=== PATIENT | female | born 1975 | race Caucasian/White ===

== ENCOUNTER → 2016-10-28 | Outpatient (CLI) | payer BC ==
[2016-10-28 09:49] LABS: Basophils # (A) 0.1 k/uL (0-0.2); Basophils % (A) 1 %; CH 31.6; CHCM 33.1; Eosinophils # (A) 0.1 k/uL (0-0.7); Eosinophils % (A) 3 %; HCT 39.5 % (34.0-46.0); HDW 2.47; HGB 13.1 gm/dL (11.4-16.0); Luc # (Auto) 0.17; Luc % (Auto) 3; Lymphocytes # (A) 1.8 k/uL (1.0-4.8); Lymphocytes % (A) 35 %; MCH 31.7 pg (25.0-35.0); MCV 95.9 fL (80.0-100.0); Mean Platelet Volume 8.6; Monocytes # (A) 0.3 k/uL (0-1.0); Monocytes % (A) 6 %; Neutrophils # (A) 2.6 k/uL (1.3-7.7); Neutrophils % (A) 52 %; RBC 4.12 m/uL (3.80-5.40); RDW 12.6 % (11.5-15.5); WBC 5.1 k/uL (3.8-10.6); WBC (Perox) 5.29
[2016-10-28 10:15] LABS: ALT 24 U/L (9-52); AST 15 U/L (14-36); Alkaline Phosphatase 39 U/L (38-126); Anion Gap 8 mmol/L; Blood Urea Nitrogen 12 mg/dL (7-17); Calcium 9.4 mg/dL (8.4-10.2); Carbon Dioxide 27 mmol/L (22-30); Chloride 106 mmol/L (98-107); Cholesterol 178 mg/dL (<200); Glucose 88 mg/dL (74-99); HDL Cholesterol 58 mg/dL (40-60); Iron 59 ug/dL (37-170); Non-African American GFR(MDRD) >60 (>60 ml/min/1.73 sqM); Potassium 4.4 mmol/L (3.5-5.1); Sodium 141 mmol/L (137-145); Total Bilirubin 0.4 mg/dL (0.2-1.3); Total Protein 6.6 g/dL (6.3-8.2); Triglycerides 42 mg/dL (<150)
[2016-10-28 10:25] LABS: % Iron Saturation 19.8 % (20-50); Total Iron Binding Capacity 298 ug/dL (265-497)
[2016-10-28 10:38] LABS: Prolactin 23.5 ng/mL (3.0-18.6)
[2016-10-28 11:09] LABS: Vitamin B12 481 pg/mL (239-931)
== END | disposition home or self-care (01) ==
LOC: LABWHC1 08:35
PROVIDERS: ATTEND Internal Medicine Endocrinology, Diabetes & Metabolism
DX: R53.83 Other fatigue (principal); E03.8 Other specified hypothyroidism; E61.1 Iron deficiency; I10 Essential (primary) hypertension; E78.2 Mixed hyperlipidemia; D50.0 Iron deficiency anemia secondary to blood loss (chronic)
CPT/HCPCS: 36415; 80053; 80061; 82306; 82533; 82607; 82728; 83540; 83550; 84146; 84439; 84443; 84481; 85025

== ENCOUNTER → 2017-01-09 | Outpatient (CLI) | payer BC ==
--- NOTE | 2017-01-09 12:40 | EST ---
DATE OF SERVICE: 01/09/2017 AGE: 41Y SEX: F HT: 69" WT: 159 lbs. Protocol Nadir: X Other: Stress Stage: 3 Dur. of Exercise: 6:40 *Heart Rate Blood Pressure *Rest: 122 Rest: 124/69 * *Max. Achieved: 190 Maximum BP: 174/109 85% PMHR: 153 100% PMHR: 180 *METS: 8.1 INDICATIONS: Chest pain. MEDICATIONS: Xanax, Tylenol, Motrin. STRESS DATA: Pretesting physical examination showed a heart of 122, pressure is 124/69 mmHg. Baseline EKG showed sinus rhythm with sinus tachycardia. The patient exercised on the treadmill according to Nadir protocol for a total 6 minutes and achieved 8 of METs. His max heart rate was 190. Maximum blood pressure was 174/109 mmHg. Clinically, the patient did not have any symptoms of chest pain or discomfort during the testing or in the recovery time. The EKG did not show any significant ST or T-wave abnormalities consistent with ischemia. CONCLUSION: 1. Average exercise capacity. 2. Mild EKG changes in response to exercise. Did not meet the criteria for ischemia.
== END | disposition home or self-care (01) ==
LOC: RADNMMAIN 10:49
PROVIDERS: ATTEND Internal Medicine
DX: R07.9 Chest pain, unspecified (principal); I10 Essential (primary) hypertension
CPT/HCPCS: 93017

== ENCOUNTER → 2017-01-16 | Outpatient (CLI) | payer BC ==
--- NOTE | 2017-01-16 11:59 | US ---
EXAMINATION TYPE: US abdomen complete DATE OF EXAM: 01/16/2017 COMPARISON: NONE CLINICAL HISTORY: R10.11Right upper quadrant Abd Pain. Epigastric pain EXAM MEASUREMENTS: Liver Length: 12.4 cm Gallbladder Wall: 0.3 cm CBD: 0.3 cm Spleen: 9.8 cm Right Kidney: 10.4 x 4.9 x 4.1 cm Left Kidney: 10.0 x 5.7 x 5.2 cm Pancreas: Liver: wnl Gallbladder: no evidence of stones Evidence for sonographic Gonzalez's sign: No CBD: wnl Spleen: wnl Right Kidney: no evidence of hydronephrosis or mass Left Kidney: no evidence of hydronephrosis or mass Upper IVC: wnl Abd Aorta: wnl The liver is homogenous. The intrahepatic portion of the IVC and visualized abdominal aorta are with in normal limits. There is no evidence of cholelithiasis. Common bile duct is unremarkable. The vi sualized portions of the pancreas are slightly heterogeneous. No worrisome distinct focal mass causin g ductal dilatation is evident technologist put an arrow near Slightly heterogeneous ill-defined area suspect is not true lesion. The spleen is unremarkable. Kidneys are symmetric and free of hydroneph rosis. No renal lesions are seen. IMPRESSION: No significant finding is seen to account for patient's symptoms.
== END | disposition home or self-care (01) ==
LOC: RADUSWWP 10:36
PROVIDERS: ATTEND Internal Medicine
DX: R10.11 Right upper quadrant pain (principal)
CPT/HCPCS: 76700

== ENCOUNTER → 2017-01-21 | Outpatient (CLI) | payer BC ==
[2017-01-21 15:53] LABS: Appearance,Urine Clear (Clear); Bilirubin,Urine Negative (Negative); Glucose,Urine (UA) Negative (Negative); Ketones,Urine Negative (Negative); Leukocyte Esterase,Urine Negative (Negative); Nitrite,Urine Negative (Negative); Protein,Urine Negative (Negative); Specific Gravity,Urine 1.001 (1.001-1.035); UA Billing (MACRO vs. MICRO) CHEM; Urobilinogen,Urine <2.0 mg/dL (<2.0)
== END ==
LOC: LABWHC1 15:24
PROVIDERS: ATTEND Internal Medicine
DX: N39.0 Urinary tract infection, site not specified (principal)
CPT/HCPCS: 81003; 87086

== ENCOUNTER → 2017-02-13 | Outpatient (CLI) | payer BC ==
[2017-02-13 09:34] LABS: CH 30.7; HCT 40.3 % (34.0-46.0); HDW 2.49; HGB 13.9 gm/dL (11.4-16.0); MCH 32.1 pg (25.0-35.0); MCHC 34.4 g/dL (31.0-37.0); MCV 93.4 fL (80.0-100.0); Mean Platelet Volume 7.5; RBC 4.31 m/uL (3.80-5.40); RDW 12.6 % (11.5-15.5); WBC 6.2 k/uL (3.8-10.6)
[2017-02-13 10:41] LABS: % Iron Saturation 36.3 % (20-50)
--- NOTE | 2017-02-14 08:22 | MM ---
Reason for exam: history of breast augmentation, asymptomatic. Last mammogram was performed 2 years and 2 months ago. History: Retro-pectoral saline implants, September 2011. Physical Findings: A clinical breast exam by your physician is recommended on an annual basis and results should be correlated with mammographic findings. MG 3D Screen Mammo Imp/Cad Bilateral CC, MLO, and ID view(s) were taken. Prior study comparison: December 07, 2014, bilateral MG screening mammo w CAD. There are scattered fibroglandular densities. Bilateral implants. No significant changes when compared with prior studies. ASSESSMENT: Benign, BI-RAD 2 RECOMMENDATION: Routine screening mammogram of both breasts in 1 year.
== END | disposition home or self-care (01) ==
LOC: RADMAMWWP 08:46
PROVIDERS: ATTEND Obstetrics & Gynecology
DX: Z12.31 Encounter for screening mammogram for malignant neoplasm of breast (principal); E61.1 Iron deficiency; R53.83 Other fatigue; Z98.82 Breast implant status
CPT/HCPCS: 82728; 83540; 83550; 84443; 85027; 77063; G0202

== ENCOUNTER → 2017-04-03 | Outpatient (CLI) | payer BC | END | disposition home or self-care (01) | LOC: LABWHC1 11:08 | PROVIDERS: ATTEND Internal Medicine Endocrinology, Diabetes & Metabolism | DX: E03.8 Other specified hypothyroidism (principal) | CPT/HCPCS: 36415; 84443 ==

== ENCOUNTER → 2017-05-09 | Outpatient (CLI) | payer BC ==
--- NOTE | 2017-05-09 19:07 | ECHOF ---
Referral Reason:R01.1 Benign and innocent cardiac murmurs MEASUREMENTS -------- HEIGHT: 175.3 cm WEIGHT: 68.0 kg BP: 154/97 RVIDd: 2.4 cm (< 3.3) IVSd: 1.0 cm (0.6 - 1.1) LVIDd: 4.1 cm (3.9 - 5.3) LVPWd: 1.0 cm (0.6 - 1.1) IVSs: 1.3 cm LVIDs: 2.6 cm LVPWs: 1.6 cm LAESV Index (A-L): 19.43 ml/m Ao Diam: 2.9 cm (2.0 - 3.7) AV Cusp: 1.9 cm (1.5 - 2.6) LA Diam: 2.5 cm (2.7 - 3.8) MV EXCURSION: 16.074 mm (> 18.000) MV EF SLOPE: 159 mm/s (70 - 150) EPSS: 0.1 cm MV E Lobo: 0.84 m/s MV DecT: 266 ms MV A Lobo: 0.76 m/s MV E/A Ratio: 1.10 RAP: 5.00 mmHg RVSP: 10.41 mmHg FINDINGS -------- Sinus rhythm. This was a technically good study. Pt. Has Breast inplants The left ventricular size is normal. Left ventricular wall thickness is normal. Overall left ventricular systolic function is normal with, an EF between 60 - 65 %. The right ventricle is normal in size and function. Normal LA size by volume 22+/-6 ml/m2. The right atrium is normal in size. The aortic valve is trileaflet, and appears structurally normal. No aortic stenosis or regurgitation. The mitral valve leaflets are mildly thickened. There is trace mitral regurgitation. No regurgitation noted Right ventricular systolic pressure is normal at < 35 mmHg. There is no evidence of pulmonary hypertension. The pulmonic valve is normal. The aortic root size is normal. Normal inferior vena cava with normal inspiratory collapse consistent with estimated right atrial pressure of 5 mmHg. The pericardium is normal. There is no pericardial effusion. CONCLUSIONS -------- 1. Sinus rhythm. 2. No regurgitation noted 3. Right ventricular systolic pressure is normal at < 35 mmHg. 4. There is no evidence of pulmonary hypertension. 5. The aortic root size is normal. 6. There is no pericardial effusion. 7. This was a technically good study. 8. Pt. Has Breast inplants 9. The left ventricular size is normal. 10. Overall left ventricular systolic function is normal with, an EF between 60 - 65 %. 11. Normal LA size by volume 22+/-6 ml/m2. 12. The aortic valve is trileaflet, and appears structurally normal. No aortic stenosis or regurgitation. 13. The mitral valve leaflets are mildly thickened. 14. There is trace mitral regurgitation. KICK BOXER: Loyd Metcalf RDCS
== END | disposition home or self-care (01) ==
LOC: RADECHMAIN 15:19
PROVIDERS: ATTEND Internal Medicine
DX: I34.0 Nonrheumatic mitral (valve) insufficiency (principal)
CPT/HCPCS: 93306

== ENCOUNTER → 2017-08-28 | Outpatient (CLI) | payer BC ==
[2017-08-28 09:02] LABS: Basophils # (A) 0.1 k/uL (0-0.2); Basophils % (A) 1 %; Eosinophils # (A) 0.1 k/uL (0-0.7); Eosinophils % (A) 2 %; HGB 13.1 gm/dL (11.4-16.0); Lymphocytes # (A) 2.5 k/uL (1.0-4.8); Lymphocytes % (A) 45 %; MCH 30.7 pg (25.0-35.0); MCHC 32.6 g/dL (31.0-37.0); MCV 94.2 fL (80.0-100.0); Mean Platelet Volume 7.6; Monocytes # (A) 0.3 k/uL (0-1.0); Monocytes % (A) 5 %; Neutrophils # (A) 2.5 k/uL (1.3-7.7); Neutrophils % (A) 44 %; Platelet Count 341 k/uL (150-450); RBC 4.25 m/uL (3.80-5.40); RDW 12.3 % (11.5-15.5); WBC 5.6 k/uL (3.8-10.6)
[2017-08-28 09:46] LABS: ALT 39 U/L (9-52); AST 21 U/L (14-36); Albumin 4.2 g/dL (3.5-5.0); Alkaline Phosphatase 40 U/L (38-126); Anion Gap 11 mmol/L; Blood Urea Nitrogen 12 mg/dL (7-17); Calcium 9.9 mg/dL (8.4-10.2); Carbon Dioxide 26 mmol/L (22-30); Chloride 104 mmol/L (98-107); Cholesterol 163 mg/dL (<200); Glucose 89 mg/dL (74-99); HDL Cholesterol 46 mg/dL (40-60); LDL Cholesterol,Calculated 105 mg/dL (0-99); Potassium 4.3 mmol/L (3.5-5.1); Sodium 141 mmol/L (137-145); Total Bilirubin 0.4 mg/dL (0.2-1.3); Total Protein 6.9 g/dL (6.3-8.2); Triglycerides 61 mg/dL (<150)
[2017-08-28 10:02] LABS: T4, Free (Free Thyroxine) 0.97 ng/dL (0.78-2.19)
[2017-08-28 15:09] LABS: Iron Saturation 21.94 (12.00-45.00)
[2017-08-28 15:17] LABS: Vitamin D 25 Hydroxy 44.9 ng/mL (30.0-100.0)
== END | disposition home or self-care (01) ==
LOC: LABWHC1 08:41
PROVIDERS: ATTEND Internal Medicine Endocrinology, Diabetes & Metabolism
DX: I10 Essential (primary) hypertension (principal); D50.0 Iron deficiency anemia secondary to blood loss (chronic); E03.9 Hypothyroidism, unspecified; E03.8 Other specified hypothyroidism; R53.83 Other fatigue
CPT/HCPCS: 36415; 80053; 80061; 82306; 82607; 82728; 83540; 83550; 84439; 84443; 84481; 85025

== ENCOUNTER → 2017-11-14 | Outpatient (CLI) | payer BC ==
[2017-11-14 09:07] LABS: HCT 40.1 % (34.0-46.0); HGB 13.7 gm/dL (11.4-16.0); MCH 31.2 pg (25.0-35.0); MCHC 34.2 g/dL (31.0-37.0); MCV 91.2 fL (80.0-100.0); Mean Platelet Volume 7.8; RDW 12.3 % (11.5-15.5); WBC 6.2 k/uL (3.8-10.6)
[2017-11-14 11:19] LABS: ALT 20 U/L (9-52); AST 14 U/L (14-36); Albumin 4.2 g/dL (3.5-5.0); Alkaline Phosphatase 41 U/L (38-126); Anion Gap 12 mmol/L; Blood Urea Nitrogen 12 mg/dL (7-17); Calcium 9.8 mg/dL (8.4-10.2); Carbon Dioxide 25 mmol/L (22-30); Chloride 105 mmol/L (98-107); Glucose 94 mg/dL (74-99); Potassium 4.5 mmol/L (3.5-5.1); Sodium 142 mmol/L (137-145); Total Bilirubin 0.5 mg/dL (0.2-1.3); Total Protein 7.1 g/dL (6.3-8.2)
[2017-11-14 11:34] LABS: T4, Free (Free Thyroxine) 0.74 ng/dL (0.78-2.19)
[2017-11-14 16:27] LABS: Blast Cells # (M) 0.06 k/uL (0); Nucleated Red Blood Cells 0 /100 WBC (0-0); Platelet Count 355 k/uL (150-450)
[2017-11-14 16:51] LABS: Iron Saturation 29.63 (12.00-45.00)
[2017-11-14 17:00] LABS: Vitamin D 25 Hydroxy 49.8 ng/mL (30.0-100.0)
[2017-11-15 08:11] LABS: Band Neutrophils % 1 %; Basophils # (M) 0.06 k/uL (0-0.2); Eosinophils # (M) 0.12 k/uL (0-0.7); Lymphocytes # (M) 2.91 k/uL (1.0-4.8); Monocytes # (M) 0.43 k/uL (0-1.0); Neutrophils % (M) 44 %; Poikilocytosis (M) Present; Total Cells Counted 200
== END | disposition home or self-care (01) ==
LOC: LABWHC1 08:51
PROVIDERS: ATTEND Internal Medicine Endocrinology, Diabetes & Metabolism
DX: E03.8 Other specified hypothyroidism (principal); E61.1 Iron deficiency; R53.83 Other fatigue; E55.9 Vitamin D deficiency, unspecified
CPT/HCPCS: 36415; 80053; 82306; 82607; 82728; 83540; 83550; 84439; 84443; 84481; 85027

== ENCOUNTER → 2018-03-02 | Outpatient (CLI) | payer BC ==
[2018-03-02 08:45] LABS: ALT 24 U/L (9-52); AST 17 U/L (14-36); Albumin 4.3 g/dL (3.5-5.0); Alkaline Phosphatase 37 U/L (38-126); Anion Gap 8 mmol/L; Blood Urea Nitrogen 10 mg/dL (7-17); Carbon Dioxide 27 mmol/L (22-30); Chloride 105 mmol/L (98-107); Glucose 87 mg/dL (74-99); Potassium 4.4 mmol/L (3.5-5.1); Sodium 140 mmol/L (137-145); Total Bilirubin 0.3 mg/dL (0.2-1.3)
[2018-03-02 08:46] LABS: HCT 41.1 % (34.0-46.0); HGB 13.4 gm/dL (11.4-16.0); MCHC 32.7 g/dL (31.0-37.0); MCV 94.8 fL (80.0-100.0); Mean Platelet Volume 7.8; Platelet Count 331 k/uL (150-450); RBC 4.33 m/uL (3.80-5.40); RDW 12.7 % (11.5-15.5)
[2018-03-02 09:00] LABS: T4, Free (Free Thyroxine) 0.97 ng/dL (0.78-2.19)
[2018-03-02 17:25] LABS: Iron Saturation 16.77 (12.00-45.00)
[2018-03-02 17:33] LABS: Vitamin D 25 Hydroxy 39.5 ng/mL (30.0-100.0)
== END | disposition home or self-care (01) ==
LOC: LABWHC1 08:13
PROVIDERS: ATTEND Internal Medicine Endocrinology, Diabetes & Metabolism
DX: E03.8 Other specified hypothyroidism (principal); E61.1 Iron deficiency; R53.83 Other fatigue
CPT/HCPCS: 36415; 80053; 82306; 82728; 83540; 83550; 84439; 84443; 85027

== ENCOUNTER → 2018-06-19 | Outpatient (CLI) | payer BC ==
--- NOTE | 2018-06-22 11:47 | MM ---
Reason for exam: screening (asymptomatic). Last mammogram was performed 1 year and 4 months ago. History: Retro-pectoral saline implants, September 2011. Physical Findings: A clinical breast exam by your physician is recommended on an annual basis and results should be correlated with mammographic findings. MG Screening Mammo Implant/CAD Bilateral CC, MLO, and ID view(s) were taken. Prior study comparison: February 13, 2017, bilateral MG 3d screen mammo imp/cad. December 07, 2014, bilateral MG screening mammo w CAD. There are scattered fibroglandular densities. No significant changes when compared with prior studies. ASSESSMENT: Benign, BI-RAD 2 RECOMMENDATION: Routine screening mammogram of both breasts in 1 year.
== END | disposition home or self-care (01) ==
LOC: RADMAMWWP 08:00
PROVIDERS: ATTEND Obstetrics & Gynecology
DX: Z12.31 Encounter for screening mammogram for malignant neoplasm of breast (principal); Z98.82 Breast implant status
CPT/HCPCS: 77067

== ENCOUNTER → 2018-07-01 | Outpatient (CLI) | payer BC ==
[2018-07-01 09:04] LABS: HCT 38.7 % (34.0-46.0); HGB 12.7 gm/dL (11.4-16.0); MCH 31.3 pg (25.0-35.0); MCHC 32.9 g/dL (31.0-37.0); MCV 95.1 fL (80.0-100.0); Mean Platelet Volume 7.5; Platelet Count 337 k/uL (150-450); RBC 4.07 m/uL (3.80-5.40); RDW 12.5 % (11.5-15.5)
[2018-07-01 19:08] LABS: Iron Saturation 16.19 (12.00-45.00)
== END | disposition home or self-care (01) ==
LOC: LABWHC1 08:31
PROVIDERS: ATTEND Internal Medicine Endocrinology, Diabetes & Metabolism
DX: E61.1 Iron deficiency (principal)
CPT/HCPCS: 36415; 82728; 83540; 83550; 85027

== ENCOUNTER → 2018-08-25 | Outpatient (CLI) | payer BC | LOC: LABWHC1 07:40 | PROVIDERS: ATTEND Internal Medicine Endocrinology, Diabetes & Metabolism | DX: E03.8 Other specified hypothyroidism (principal) | CPT/HCPCS: 36415; 84443 ==

== ENCOUNTER → 2019-02-15 | Outpatient (CLI) | payer BC | END | disposition home or self-care (01) | LOC: LABWHC1 07:48 | PROVIDERS: ATTEND Internal Medicine Endocrinology, Diabetes & Metabolism | DX: E03.8 Other specified hypothyroidism (principal) | CPT/HCPCS: 36415; 84443 ==

== ENCOUNTER 2020-02-21 12:49 | Observation (INO) | payer BC ==
--- NOTE | 2020-02-21 12:26 | CT ---
EXAMINATION TYPE: CT abdomen pelvis w con DATE OF EXAM: 02/21/2020 COMPARISON: None HISTORY: Right lower quadrant pain. CT DLP: 725 mGycm Automated exposure control for dose reduction was used. TECHNIQUE: Helical acquisition of images from the lung bases through the pelvis have been completed. CONTRAST: Performed with Oral Contrast and with IV Contrast, patient injected with 100 mL of Isovue M300. FINDINGS: Umbilical hernia contains fat. Bilateral breast prostheses are placed. LUNG BASES: No significant abnormality is appreciated. AORTA: No significant abnormality is appreciated. LIVER/GB: No significant abnormality is appreciated. PANCREAS: No significant abnormality is seen. SPLEEN: No significant abnormality is seen. ADRENALS: No significant abnormality is seen. KIDNEYS: Low dense foci within the kidneys likely represent cysts. REPRODUCTIVE ORGANS: Right adnexal cystic focus may represent follicle measuring approximately 2.2 cm BOWEL: There is abnormal thickening of the appendix, some periappendiceal inflammatory change within the surrounding fat. FREE AIR: No Free Air visible. ASCITES: None visible. PELVIC ADENOPATHY: None visualized. RETROPERITONEAL ADENOPATHY: No Retroperitoneal Adenopathy visible. URINARY BLADDER: No significant abnormality is seen. OSSEOUS STRUCTURES: Postop changes are noted to the right hip. IMPRESSION: FINDINGS CONSISTENT WITH APPENDICITIS A Red level critical message alert has been initiated for Montez Amaya MD via the [employer] Critical Results System on 02/21/2020 12:23 PM. This message alert has been sent to Montez Amaya MD via the preferences provided by the clinician for the receipt of Radiology Critical Findings. [facility] ID [id number].
[2020-02-21] MEDS ORDERED: SODIUM CHLORIDE 0.9% 1,000 ML IV STA (13:14)
--- NOTE | 2020-02-21 13:18 | ED ---
General Adult HPI - General Chief complaint: Abdominal Pain Stated complaint: abnormal ct Time Seen by Provider: 02/21/20 13:03 Source: patient, RN notes reviewed Mode of arrival: ambulatory Limitations: no limitations - History of Present Illness Initial comments: Patient is a pleasant 44-year-old female presenting to the emergency Department with abdominal discomfort. Onset of symptoms was 2 days ago. There was some nausea yesterday. Symptoms are mild to moderate. Decreased appetite, patient has not ate yet today. Patient thought she may been constipated couple days ago. No history of similar symptoms previously. Patient did see her doctor who ordered computed tomography scan and then she was advised come to emergency department. - Related Data Home Medications Medication Instructions Recorded Confirmed Levothyroxine Sodium [Synthroid] 100 mcg PO DAILY 04/20/14 04/20/14 Liothyronine Sodium [Cytomel] 5 mg PO DAILY 04/20/14 04/20/14 valACYclovir [Valtrex] 500 mg PO DAILY 04/20/14 04/20/14 Previous Rx's Medication Instructions Recorded ALPRAZolam [Xanax] 0.5 mg PO Q8HR PRN #10 tablet 04/20/14 Allergies Allergy/AdvReac Type Severity Reaction Status Date / Time morphine AdvReac Nausea Verified 02/21/20 13:04 Sulfa (Sulfonamide AdvReac Rash/Hives Verified 02/21/20 13:04 Antibiotics) Review of Systems ROS Statement: Those systems with pertinent positive or pertinent negative responses have been documented in the HPI. ROS Other: All systems not noted in ROS Statement are negative. Constitutional: Denies: fever Eyes: Denies: eye pain ENT: Denies: ear pain Respiratory: Denies: cough Cardiovascular: Denies: chest pain Endocrine: Denies: fatigue Gastrointestinal: Reports: abdominal pain, nausea Genitourinary: Denies: dysuria Musculoskeletal: Denies: back pain Skin: Denies: rash Neurological: Denies: weakness Past Medical History Past Medical History: Thyroid Disorder Additional Past Medical History / Comment(s): Loly Cornejo, right eye dilated History of Any Multi-Drug Resistant Organisms: None Reported Past Surgical History: Tonsillectomy Additional Past Surgical History / Comment(s): left hip(pins), breast implants Past Psychological History: Anxiety, Depression Smoking Status: Current some day smoker Past Alcohol Use History: None Reported Past Drug Use History: None Reported General Exam Limitations: no limitations General appearance: alert, in no apparent distress Head exam: Present: normocephalic Eye exam: Present: normal appearance Neck exam: Present: normal inspection Respiratory exam: Present: normal lung sounds bilaterally Cardiovascular Exam: Present: regular rate, normal rhythm Expanded Peripheral pulses: 2+: Dorsalis Pedis (R), Dorsalis Pedis (L) GI/Abdominal exam: Present: soft, tenderness (Mild tenderness right lower abdomen), normal bowel sounds. Absent: distended, guarding, rebound, rigid, pulsatile mass Extremities exam: Present: normal inspection. Absent: pedal edema, calf tenderness Neurological exam: Present: alert Psychiatric exam: Present: normal affect, normal mood Skin exam: Present: normal color Course Vital Signs 02/21/20 13:02 Temperature 98.3 F Pulse Rate 18 L Respiratory 103 H Rate Blood Pressure 157/102 O2 Sat by Pulse 99 Oximetry Medical Decision Making - Medical Decision Making Patient reevaluated and updated. Case discussed with Dr. Khanna, who will admit - Lab Data Result diagrams: 02/21/20 13:37 02/21/20 13:37 Lab Results 02/21/20 02/21/20 02/21/20 Range/Units 13:37 13:37 13:37 WBC 7.5 (3.8-10.6) k/uL RBC 4.45 (3.80-5.40) m/uL Hgb 13.6 (11.4-16.0) gm/dL Hct 42.1 (34.0-46.0) % MCV 94.5 (80.0-100.0) fL MCH 30.6 (25.0-35.0) pg MCHC 32.4 (31.0-37.0) g/dL RDW 12.5 (11.5-15.5) % Plt Count 320 (150-450) k/uL Neutrophils % 56 % Lymphocytes % 34 % Monocytes % 5 % Eosinophils % 2 % Basophils % 1 % Neutrophils # 4.2 (1.3-7.7) k/uL Lymphocytes # 2.6 (1.0-4.8) k/uL Monocytes # 0.4 (0-1.0) k/uL Eosinophils # 0.1 (0-0.7) k/uL Basophils # 0.1 (0-0.2) k/uL PT 10.4 (9.0-12.0) sec INR 1.0 (<1.2) APTT 24.5 (22.0-30.0) sec Sodium 135 L (137-145) mmol/L Potassium 4.3 (3.5-5.1) mmol/L Chloride 103 (98-107) mmol/L Carbon Dioxide 21 L (22-30) mmol/L Anion Gap 11 mmol/L BUN 10 (7-17) mg/dL Creatinine 0.67 (0.52-1.04) mg/dL Est GFR (CKD-EPI)AfAm >90 (>60 ml/min/1.73 sqM) Est GFR (CKD-EPI)NonAf >90 (>60 ml/min/1.73 sqM) Glucose 93 (74-99) mg/dL Calcium 9.7 (8.4-10.2) mg/dL Total Bilirubin 0.5 (0.2-1.3) mg/dL AST 22 (14-36) U/L ALT 16 (4-34) U/L Alkaline Phosphatase 57 (38-126) U/L Total Protein 7.3 (6.3-8.2) g/dL Albumin 4.5 (3.5-5.0) g/dL Amylase 30 (30-110) U/L Lipase 122 (23-300) U/L HCG, Quant <2.4 mIU/mL - Radiology Data Radiology results: report reviewed (Computed tomography scan suspicious for appendicitis) Disposition Clinical Impression: Appendicitis Disposition: ADMITTED IP TO THIS [facility] Is patient prescribed a controlled substance at d/c from ED?: No Referrals: Montez Amaya MD [Primary Care Provider] - 1-2 days Decision Time: 14:46
[2020-02-21 13:52] LABS: Basophils # (A) 0.1 k/uL (0-0.2); Basophils % (A) 1 %; Eosinophils # (A) 0.1 k/uL (0-0.7); Eosinophils % (A) 2 %; HCT 42.1 % (34.0-46.0); HGB 13.6 gm/dL (11.4-16.0); Lymphocytes # (A) 2.6 k/uL (1.0-4.8); Lymphocytes % (A) 34 %; MCH 30.6 pg (25.0-35.0); MCHC 32.4 g/dL (31.0-37.0); MCV 94.5 fL (80.0-100.0); Mean Platelet Volume 8.7; Monocytes # (A) 0.4 k/uL (0-1.0); Monocytes % (A) 5 %; Neutrophils # (A) 4.2 k/uL (1.3-7.7); Neutrophils % (A) 56 %; Platelet Count 320 k/uL (150-450); RBC 4.45 m/uL (3.80-5.40); RDW 12.5 % (11.5-15.5); WBC 7.5 k/uL (3.8-10.6)
[2020-02-21 14:06] LABS: Partial Thromboplastin Time 24.5 sec (22.0-30.0); Prothrombin Time 10.4 sec (9.0-12.0)
[2020-02-21 14:09] LABS: ALT 16 U/L (4-34); AST 22 U/L (14-36); African American GFR (CKD) >90 (>60 ml/min/1.73 sqM); Albumin 4.5 g/dL (3.5-5.0); Alkaline Phosphatase 57 U/L (38-126); Amylase 30 U/L (30-110); Anion Gap 11 mmol/L; Blood Urea Nitrogen 10 mg/dL (7-17); Calcium 9.7 mg/dL (8.4-10.2); Carbon Dioxide 21 mmol/L (22-30); Chloride 103 mmol/L (98-107); Glucose 93 mg/dL (74-99); Non-African American GFR(CKD) >90 (>60 ml/min/1.73 sqM); Potassium 4.3 mmol/L (3.5-5.1); Sodium 135 mmol/L (137-145); Total Bilirubin 0.5 mg/dL (0.2-1.3); Total Protein 7.3 g/dL (6.3-8.2)
[2020-02-21 14:26] LABS: HCG,Quantitative Serum <2.4 mIU/mL
[2020-02-21] MEDS ORDERED: LORazepam 2 MG/ML INJ IV PRN (14:47)
[2020-02-21] MEDS ORDERED: NALOXONE 0.4 MG/ML 1 ML VIAL IV PRN ×2 (14:47→17:12)
[2020-02-21] MEDS ORDERED: ONDANSETRON 4 MG/2 ML VIAL IVP PRN ×2 (14:47→17:12)
[2020-02-21] MEDS ORDERED: SODIUM CHLORIDE 0.9% 1,000 ML IV SCH (15:00)
[2020-02-21] MEDS ORDERED: IV FLUID CONTINUATION 1,000 ML IV ONE (15:44)
[2020-02-21] MEDS ORDERED: ONDANSETRON 4 MG/2 ML VIAL ONE ×2 (15:47→16:24)
[2020-02-21] MEDS ORDERED: ONDANSETRON 4 MG/2 ML VIAL IVP ONE (15:48)
[2020-02-21] MEDS ORDERED: DEXAMETHASONE SOD PHOSPHATE 10 MG/ML 1 ML VIAL IV ONE (15:48)
[2020-02-21] MEDS ORDERED: SCOPOLAMINE 1.5MG/72HR PATCH TRANSDERM ONE (15:49)
--- NOTE | 2020-02-21 15:55 | P.OP ---
Date of Procedure: 02/21/20 Preoperative Diagnosis: Right colon mass Postoperative Diagnosis: Right colon mass Procedure(s) Performed: Right colectomy Anesthesia: MAC Surgeon: Pierre Calderón Estimated Blood Loss (ml): 25 Pathology: other (Right colon) Condition: stable Disposition: PACU Description of Procedure: The patient's placed on the operating table in supine position. She received general anesthesia.. Her abdomen was prepped and draped usual sterile fashion. The abdomen was entered through a midline incision. There was a incarcerated ventral hernia located near the umbilicus. The trochars used to divide the layers abdominal wall. The abdomen was entered. The cecum had been tattooed by the endoscopist. The liver appeared normal. The small bowel appeared normal. The remainder the colon. Normal. The right colon was immobilized midline the white line of Toldt. The proximal transverse colon was then transected the GI stapler. The distal terminal ileum was injected stented with a GI stapler. Then using the Enseal device the mesentery the bowel was divided and specimen sent to pathology. A [id number] functional end-to-end staple anastomosis then created using PJ and TA stapler. 3-0 GI silk sutures as a crotch stitch. The abdomen was areas of bleeding seen. The fascia was closed with looped #1 PDS suture. The ventral hernias repaired during fascial closure. The skin was closed armando. Patient top she will was sent to recovery room stable condition.
[2020-02-21] MEDS ORDERED: MIDAZOLAM 2 MG/2 ML VIAL IVP ONE (16:00)
[2020-02-21] MEDS ORDERED: D5-0.45% NACL WITH KCL 20MEQ/L 1,000 ML IV SCH (16:00)
--- NOTE | 2020-02-21 16:08 | P.GSHP ---
History of Present Illness H&P Date: 02/21/20 Chief Complaint: Right lower quadrant pain This a 41-year-old female presents emergently with right lower quadrant pain. Patient's found evidence acute appendicitis. On CAT scan. Past Medical History Past Medical History: Thyroid Disorder Additional Past Medical History / Comment(s): Loly Cornejo, right eye dilated History of Any Multi-Drug Resistant Organisms: None Reported Past Surgical History: Tonsillectomy Additional Past Surgical History / Comment(s): left hip(pins), breast implants Past Psychological History: Anxiety, Depression Smoking Status: Current some day smoker Past Alcohol Use History: None Reported Past Drug Use History: None Reported Medications and Allergies Home Medications Medication Instructions Recorded Confirmed Type ALPRAZolam [Xanax] 0.5 mg PO BID PRN 02/21/20 02/21/20 History Acetaminophen Tab [Tylenol] 325 mg PO Q4-6H PRN 02/21/20 02/21/20 History Docusate [Colace] 200 mg PO ONCE PRN 02/21/20 02/21/20 History Ibuprofen [Motrin Ib] 200 mg PO ONCE PRN 02/21/20 02/21/20 History Multivitamins, Thera [Multivitamin 1 tab PO DAILY 02/21/20 02/21/20 History (formulary)] Allergies Allergy/AdvReac Type Severity Reaction Status Date / Time morphine AdvReac Nausea Verified 02/21/20 15:47 Sulfa (Sulfonamide AdvReac Rash/Hives Verified 02/21/20 15:47 Antibiotics) Surgical - Exam Vital Signs Temp Pulse Resp BP Pulse Ox 98.3 F 18 L 103 H 157/102 99 02/21/20 13:02 02/21/20 13:02 02/21/20 13:02 02/21/20 13:02 02/21/20 13:02 - General well developed, well nourished, no distress - Eyes PERRL - ENT normal pinna - Neck no masses - Respiratory normal expansion - Cardiovascular Rhythm: regular - Abdomen Right lower quadrant pain at McBurney's point Abdomen: soft Results - Labs 02/21/20 13:37 02/21/20 13:37 Abnormal Lab Results - Last 24 Hours (Table) 02/21/20 Range/Units 13:37 Sodium 135 L (137-145) mmol/L Carbon Dioxide 21 L (22-30) mmol/L Diabetes panel 02/21/20 Range/Units 13:37 Sodium 135 L (137-145) mmol/L Potassium 4.3 (3.5-5.1) mmol/L Chloride 103 (98-107) mmol/L Carbon Dioxide 21 L (22-30) mmol/L BUN 10 (7-17) mg/dL Creatinine 0.67 (0.52-1.04) mg/dL Glucose 93 (74-99) mg/dL Calcium 9.7 (8.4-10.2) mg/dL AST 22 (14-36) U/L ALT 16 (4-34) U/L Alkaline Phosphatase 57 (38-126) U/L Total Protein 7.3 (6.3-8.2) g/dL Albumin 4.5 (3.5-5.0) g/dL Calcium panel 02/21/20 Range/Units 13:37 Calcium 9.7 (8.4-10.2) mg/dL Albumin 4.5 (3.5-5.0) g/dL Pituitary panel 02/21/20 Range/Units 13:37 Sodium 135 L (137-145) mmol/L Potassium 4.3 (3.5-5.1) mmol/L Chloride 103 (98-107) mmol/L Carbon Dioxide 21 L (22-30) mmol/L BUN 10 (7-17) mg/dL Creatinine 0.67 (0.52-1.04) mg/dL Glucose 93 (74-99) mg/dL Calcium 9.7 (8.4-10.2) mg/dL Adrenal panel 02/21/20 Range/Units 13:37 Sodium 135 L (137-145) mmol/L Potassium 4.3 (3.5-5.1) mmol/L Chloride 103 (98-107) mmol/L Carbon Dioxide 21 L (22-30) mmol/L BUN 10 (7-17) mg/dL Creatinine 0.67 (0.52-1.04) mg/dL Glucose 93 (74-99) mg/dL Calcium 9.7 (8.4-10.2) mg/dL Total Bilirubin 0.5 (0.2-1.3) mg/dL AST 22 (14-36) U/L ALT 16 (4-34) U/L Alkaline Phosphatase 57 (38-126) U/L Total Protein 7.3 (6.3-8.2) g/dL Albumin 4.5 (3.5-5.0) g/dL Assessment and Plan Assessment: Acute appendicitis. We'll perform laparoscopic appendectomy
[2020-02-21] MEDS ORDERED: ROCURONIUM BROMIDE 10 MG/ML 5 ML VIAL IV ONE (16:24)
[2020-02-21] MEDS ORDERED: SUCCINYLCHOLINE CHLORIDE 100 MG/5 ML SYR IV ONE (16:24)
[2020-02-21] MEDS ORDERED: MIDAZOLAM 2 MG/2 ML VIAL ONE (16:24)
[2020-02-21] MEDS ORDERED: NEOSTIGMINE 1 MG/ML 10 ML VIAL ONE (16:24)
[2020-02-21] MEDS ORDERED: fentaNYL (PF) 50 MCG/ML 2 ML AMP ONE (16:24)
[2020-02-21] MEDS ORDERED: GLYCOPYRROLATE 0.2 MG/ML 2 ML VIAL ONE (16:24)
[2020-02-21] MEDS ORDERED: LIDOCAINE 1% INJ 10MG/ML (20 ML MDV) ONE (16:24)
[2020-02-21] MEDS ORDERED: KETOROLAC 30 MG/ML 1 ML VIAL ONE (16:24)
[2020-02-21] MEDS ORDERED: SODIUM CHLORIDE 0.9% 100 ML with ceFAZolin 2,000 MG IV ONE ×2 (16:28)
[2020-02-21] MEDS ORDERED: BUPIVACAINE (PF) 0.5% 30 ML VIAL SQ ONE (16:55)
[2020-02-21] MEDS ORDERED: LACTATED RINGERS 1,000 ML IV ONE ×2 (17:09→17:12)
[2020-02-21] MEDS ORDERED: HYDROmorphone 0.5 MG/0.5 ML SYRINGE IVP PRN (17:12)
[2020-02-21] MEDS ORDERED: HYDROcodone/APAP 5-325MG 1 EACH TAB PO PRN (17:12)
--- NOTE | 2020-02-21 17:12 | P.OP ---
Date of Procedure: 02/21/20 Preoperative Diagnosis: Acute appendicitis Postoperative Diagnosis: Acute appendicitis Procedure(s) Performed: Laparoscopic appendectomy Anesthesia: RITO Surgeon: Pierre Calderón Estimated Blood Loss (ml): 5 Pathology: other (Appendix) Condition: stable Disposition: PACU Description of Procedure: HarThe patient's placed on the operating table in the supine position. The patient received general anesthesia. The abdomen was prepped and draped in the usual sterile fashion. The skin was anesthetized 1% local Xylocaine at the trocar sites. Using an 11 blade the skin was incised at the umbilicus. The umbilicus was grasped with a Kanaranzi clamp and then a Veress needle was placed into the peritoneal cavity. Position of the Veress needle was confirmed with positive drop test. After adequate insufflation a 5 mm trocar was placed into the peritoneal cavity. The abdomen was further insufflated. And then the laparoscope was placed in the peritoneal cavity. Next a 5 mm trocar was placed in the midline suprapubic position. And then a 10 mm trocar was placed in the midline epigastric position. The patient was rotated with the right side up and in Trendelenburg. The appendix was visualized. The appendix appeared to be inflamed. The appendix was grasped and then using the Harmonic scissors the mesoappendix was divided. A PDS Endoloop was then placed around the base of the appendix. And then the appendix was divided using Harmonic scissors. The appendix was placed into an Endo Catch and brought out through the 10 mm trocar site. The abdomen was irrigated. There is no bleeding seen. The trochars withdrawn. The skin was closed interrupted 3-0 Monocryl suture. Dermabond dressing was applied. Patient was sent to recovery room in stable condition.
[2020-02-21] MEDS: HYDROmorphone 1 MG/ML 1 ML SYRINGE IVP ONE ×2 (17:22→17:30)
[2020-02-21] MEDS ORDERED: ALVIMOPAN 12 MG CAPSULE PO SCH (21:00)
--- NOTE | 2020-02-21 21:29 | P.CONS ---
History of Present Illness - Reason for Consult Consult date: 02/21/20 medical management post op Requesting physician: Pierre Calderón - Chief Complaint right lower abd pain - History of Present Illness 44 year old female with hypothyroid patient comes in with 3 day history of abd pain , started on friday , off and on . however, she felt today that pain even worse sharp 8/10 non radiating. denies fever, chills, she reports some nausea, but no vomiting. she went to her PCP , who ordered CT of the abd , and was diagnostic of acute ap pendicits. patient had laprocopic appy , tolerated procedure well, tolerated PO intake , did not pass gasses or BM yet . pain is tolerable patient with 10 y history of hypothyroid , however currently she is off medications and trying natural supplements and following with endocrine Review of Systems Pertinent positives as noted in HPI. All other systems were reviewed and are negative Past Medical History Past Medical History: Eye Disorder, Pneumonia, Thyroid Disorder Additional Past Medical History / Comment(s): Loly Ellsworth, right eye dilated History of Any Multi-Drug Resistant Organisms: None Reported Past Surgical History: Adenoidectomy, Appendectomy, Tonsillectomy Additional Past Surgical History / Comment(s): left hip(pins), breast implants, eye surgery Past Anesthesia/Blood Transfusion Reactions: Postoperative Nausea & Vomiting (PONV) Past Psychological History: Anxiety, Depression Smoking Status: Former smoker Past Alcohol Use History: None Reported Past Drug Use History: None Reported - Past Family History Mother Additional Family Medical History / Comment(s): Pancreatic Cancer Father Family Medical History: CVA/TIA Medications and Allergies Home Medications Medication Instructions Recorded Confirmed Type ALPRAZolam [Xanax] 0.5 mg PO BID PRN 02/21/20 02/21/20 History Acetaminophen Tab [Tylenol] 325 mg PO Q4-6H PRN 02/21/20 02/21/20 History Docusate [Colace] 200 mg PO ONCE PRN 02/21/20 02/21/20 History Ibuprofen [Motrin Ib] 200 mg PO ONCE PRN 02/21/20 02/21/20 History Multivitamins, Thera [Multivitamin 1 tab PO DAILY 02/21/20 02/21/20 History (formulary)] Allergies Allergy/AdvReac Type Severity Reaction Status Date / Time morphine AdvReac Nausea Verified 02/21/20 15:47 Sulfa (Sulfonamide AdvReac Rash/Hives Verified 02/21/20 15:47 Antibiotics) Physical Exam Vitals: Vital Signs Temp Pulse Pulse Pulse Resp BP BP 02/21/20 18:15 79 16 126/74 02/21/20 18:03 69 16 121/68 02/21/20 17:45 70 16 121/66 02/21/20 17:30 62 16 133/73 02/21/20 17:17 99.3 F 74 16 141/74 02/21/20 16:07 90 16 02/21/20 15:36 98.6 F 96 16 139/82 02/21/20 15:15 98.6 F 86 19 153/74 02/21/20 13:02 98.3 F 18 L 103 H 157/102 Pulse Ox 02/21/20 18:15 97 02/21/20 18:03 97 02/21/20 17:45 97 02/21/20 17:30 97 02/21/20 17:17 97 02/21/20 16:07 97 02/21/20 15:36 97 02/21/20 15:15 99 02/21/20 13:02 99 Intake and Output 02/21/20 02/21/20 02/21/20 06:59 14:59 22:59 Intake Total 600 Output Total 10 Balance 590 Intake: IV 600 Output: Estimated Blood Loss 10 Other: Weight 77.564 kg 77.564 kg Constitutional: No acute distress, conversant, pleasant Eyes: Anicteric sclerae, moist conjunctiva, Pupils equal round reactive to light ENMT: NC/AT Oropharynx clear, no erythema, or exudates Neck: Supple, FROM, no masses, or JVD No carotid bruits No thyromegaly Lungs: Clear to auscultation Clear to percussion Normal respiratory effort, no accessory muscle use Cardiovascular: Heart regular in rate and rhythm, No murmurs, gallops, or rubs No peripheral edema Abdominal: Soft, surgical wounds looks clean healthy and dry Nontender, no guarding, rebound or rigidity Abdomen moving with respiration negative bowel sounds No hepatomegaly, No splenomegaly No palpable mass No abdominal wall hernia noted Skin: Normal temperature, tone, texture, turgor No induration No subcutaneous nodules No rash, lesions No ulcers Extremities: No digital cyanosis No clubbing Pedal pulses intact and symmetrical Radial pulses intact and symmetrical No calf tenderness Psychiatric: Alert and oriented to person, place and time Appropriate affect fair judgement Neuro Muscles Strength 5/5 in all 4 extremities Sensation to light touch grossly present throughout Cranial nerves II-XII grossly intact (except right eye droop chronic ) No focal sensory deficits Lymphatics: no palpable cervical or supraclavicular , or inguinal lymph nodes Results CBC & Chem 7: 02/21/20 13:37 02/21/20 13:37 Labs: Abnormal Lab Results - Last 24 Hours (Table) 02/21/20 Range/Units 13:37 Sodium 135 L (137-145) mmol/L Carbon Dioxide 21 L (22-30) mmol/L Assessment and Plan Assessment: acute appendicitis s/p lap appy POD zero pain control post op care per General surgery encourage ambulation encourage iS use chronic conditions hypothyroid , patient not on medications at this point follow up CBC BMP CODE STATUS:full code DVT prophylaxis: lovenox daily Thank you for allowing us to participate in the care of this patient. Do not hesitate to contact us with questions. Someone can be reached from the [facility] hospitalist group at all hours of the day at [phone].
[2020-02-22 06:13] LABS: Basophils % (A) 0 %; Eosinophils # (A) 0.1 k/uL (0-0.7); Eosinophils % (A) 1 %; HCT 37.5 % (34.0-46.0); Lymphocytes # (A) 1.6 k/uL (1.0-4.8); Lymphocytes % (A) 18 %; MCH 30.2 pg (25.0-35.0); MCV 94.5 fL (80.0-100.0); Mean Platelet Volume 8.5; Monocytes # (A) 0.4 k/uL (0-1.0); Monocytes % (A) 4 %; Neutrophils # (A) 6.8 k/uL (1.3-7.7); Neutrophils % (A) 76 %; Platelet Count 316 k/uL (150-450); RBC 3.96 m/uL (3.80-5.40); RDW 12.5 % (11.5-15.5); WBC 8.9 k/uL (3.8-10.6)
[2020-02-22 06:24] LABS: African American GFR (CKD) >90 (>60 ml/min/1.73 sqM); Anion Gap 6 mmol/L; Blood Urea Nitrogen 9 mg/dL (7-17); Calcium 9.2 mg/dL (8.4-10.2); Carbon Dioxide 22 mmol/L (22-30); Chloride 107 mmol/L (98-107); Glucose 98 mg/dL (74-99); Non-African American GFR(CKD) >90 (>60 ml/min/1.73 sqM); Sodium 135 mmol/L (137-145)
[2020-02-22 07:50] VITALS: BP 117/74; PULSE 62; RESP 14; TEMP 98.8
[2020-02-22] MEDS ORDERED: ENOXAPARIN 40 MG/0.4 ML SYRINGE SQ SCH (09:00)
--- NOTE | 2020-02-22 12:29 | P.DS ---
Providers Date of admission: 02/21/20 14:47 Expected date of discharge: 02/22/20 Attending physician: Pierre Calderón Consults: 02/21/20 17:12 Consult Physician Routine Consulting Provider: Modesta Jimenez Consult Reason/Comments: Medical management Do you want consulting provider notified?: Yes Primary care physician: [facility] Course: Is a 44-year-old female who underwent laparoscopic appendectomy. Please see chart for details. Procedures: Laparoscopic appendectomy Patient Condition at Discharge: Good Plan - Discharge Summary Discharge Rx Participant: Yes New Discharge Prescriptions: New Docusate [Colace] 100 mg PO BID #20 capsule HYDROcodone/APAP 5-325MG [Perry 5-325] 1 tab PO Q6HR PRN #10 tab PRN Reason: Pain No Action ALPRAZolam [Xanax] 0.5 mg PO BID PRN PRN Reason: Anxiety Multivitamins, Thera [Multivitamin (formulary)] 1 tab PO DAILY Docusate [Colace] 200 mg PO ONCE PRN PRN Reason: Constipation Acetaminophen Tab [Tylenol] 325 mg PO Q4-6H PRN PRN Reason: Pain Ibuprofen [Motrin Ib] 200 mg PO ONCE PRN PRN Reason: Pain Discharge Medication List ALPRAZolam [Xanax] 0.5 mg PO BID PRN 02/21/20 [History] Acetaminophen Tab [Tylenol] 325 mg PO Q4-6H PRN 02/21/20 [History] Docusate [Colace] 200 mg PO ONCE PRN 02/21/20 [History] Ibuprofen [Motrin Ib] 200 mg PO ONCE PRN 02/21/20 [History] Multivitamins, Thera [Multivitamin (formulary)] 1 tab PO DAILY 02/21/20 [History] Docusate [Colace] 100 mg PO BID #20 capsule 02/22/20 [Rx] HYDROcodone/APAP 5-325MG [Perry 5-325] 1 tab PO Q6HR PRN #10 tab 02/22/20 [Rx] Follow up Appointment(s)/Referral(s): Montez Amaya MD [Primary Care Provider] - 1-2 days Pierre Calderón MD [STAFF PHYSICIAN] - 1 Week Patient Instructions/Handouts: *Surgery [facility] - Scopalamine Patch Instructions Discharge Disposition: HOME SELF-CARE
--- NOTE | 2020-02-22 15:02 | P.PN ---
Subjective Progress Note Date: 02/22/20 Principal diagnosis: abdominal pain Patient is a 44-year-old female with a history of Loly-Ellsworth, pneumonia, and thyroid disorder who initially presented to the hospital complaints of abdominal pain. She was subsequently found to have acute appendicitis and underwent laparoscopic appendectomy on 02/20. We are asked to consult for further recommendations. Patient seen and examined at bedside. She is still not passed gas, no nausea, no vomiting, no diarrhea. Belly pain is well controlled. Objective - Vital Signs Vital signs: Vital Signs Temp 98.8 F 02/22/20 07:46 Pulse 62 02/22/20 08:00 Resp 14 02/22/20 08:00 BP 117/74 02/22/20 07:46 Pulse Ox 96 02/22/20 07:46 Intake & Output 02/21/20 02/22/20 02/22/20 18:59 06:59 18:59 Intake Total 600 960 Output Total 10 Balance 590 960 Weight 77.564 kg Intake: IV 600 Oral 960 Output: Estimated Blood Loss 10 - Exam General: non toxic, no distress, appears at stated age Derm: warm, dry Head: atraumatic, normocephalic, symmetric Eyes: EOMI, no lid lag, anicteric sclera Mouth: no lip lesion, mucus membranes moist Cardiovascular: S1S2 reg, no murmur, positive posterior tibial pulse bilateral, Lungs: CTA bilateral, no rhonchi, no rales , no accessory muscle use Abdominal: soft, tender to palpation diffusely, no guarding, no appreciable organomegaly Ext: no gross muscle atrophy, no edema, no contractures Neuro: CN II-XI grossly intact, no focal neuro deficits Psych: Alert, oriented, appropriate affect - Labs CBC & Chem 7: 02/22/20 05:49 02/22/20 05:49 Labs: Abnormal Lab Results - Last 24 Hours (Table) 02/22/20 Range/Units 05:49 Sodium 135 L (137-145) mmol/L Assessment and Plan Assessment: Hyponatremia -Due to decreased oral intake -No need for follow-up -Encourage oral intake Patient medically optimized for discharge. Thank you for allowing us to participate in the care of this pleasant patient. Do not hesitate to contact us with questions. Someone can be reached from the [facility] hospitalist group all hours of the day at [phone] or via perfect serve.
== END 2020-02-22 13:38 | disposition home or self-care (01) ==
LOC: EC 12:49 → EDSTATUS 13:20 → 1SOBS 14:47
PROVIDERS: ADMIT Surgery; ATTEND Surgery
DX: K35.80 Unspecified acute appendicitis (principal); F41.9 Anxiety disorder, unspecified; F32.9 Major depressive disorder, single episode, unspecified; K59.00 Constipation, unspecified; E03.9 Hypothyroidism, unspecified; F17.200 Nicotine dependence, unspecified, uncomplicated; H57.9 Unspecified disorder of eye and adnexa; Z98.82 Breast implant status; Z86.19 Personal history of other infectious and parasitic diseases; Z79.899 Other long term (current) drug therapy; Z79.1 Long term (current) use of non-steroidal anti-inflammatories (NSAID); Z88.5 Allergy status to narcotic agent; Z88.2 Allergy status to sulfonamides; Z79.890 Hormone replacement therapy; E87.1 Hypo-osmolality and hyponatremia; Z87.01 Personal history of pneumonia (recurrent); Z90.49 Acquired absence of other specified parts of digestive tract; Z82.3 Family history of stroke; Z80.0 Family history of malignant neoplasm of digestive organs; Z11.59 Encounter for screening for other viral diseases
CPT/HCPCS: 44970; 99285; 36415; 88304; 80053; 80048; 82150; 83690; 85025 ×2; 85610; 85730; 84702; 74177; G0378 ×2; U0003; J2250; J1100; J2710; J2405; J0690; J2001; J1650; J3010; J1885; J1170 ×2; J0330; Q9967 ×2

== ENCOUNTER → 2020-07-31 | Outpatient (CLI) | payer BC ==
--- NOTE | 2020-07-31 18:21 | CT ---
EXAMINATION TYPE: CT abdomen pelvis wo con DATE OF EXAM: 07/31/2020 COMPARISON: 02/21/2020 HISTORY: 44-year-old female N20.0, right-sided kidney stone, flank pain CT DLP: 374.9 mGycm. Automated exposure control for dose reduction was used. TECHNIQUE: Contiguous axial scanning of the abdomen and pelvis without IV contrast. Coronal and sagit wenceslao reconstructions performed. FINDINGS: Heart normal size without pericardial effusion. Partially visualized bilateral breast implants. Lung bases clear without pleural effusion. Noncontrast appearance of the liver, gallbladder, adrenal glands, spleen, and pancreas show no gross abnormality. There is a new epigastric ventral abdominal wall hernia containing omental fat. The hernia sac measur es 5.9 cm wide. Tiny fatty umbilical hernia is unchanged. Numerous nonenlarged and borderline sized lymph nodes in the left mid abdominal mesentery measuring u p to 7 mm with mild karena mesentery. Findings similar to slightly increased from 02/21/2020. No nephrolithiasis or hydronephrosis. No dilated small bowel, free fluid, or free air. Mild overall stool burden. No pericolonic inflammatory change. Bladder partially distended. Uterus anteverted. Both ovaries are visualized. There is a 5.8 x 5.0 cm cystic lesion of the right ovary, increased in size from 2.2 cm on 02/21/2020. Tiny pelvic phlebolith. No abnormal fluid collection in the pelvis or pelvic lymphadenopathy. Bones: Percutaneous pinning at the left femoral neck. Scattered facet arthropathy. Trace grade 1 retr olisthesis at L2-3. IMPRESSION: 1. No nephrolithiasis or hydronephrosis. 2. New epigastric ventral abdominal wall hernia containing omental fat measuring 5.9 cm wide. 3. Numerous nonenlarged and borderline sized left mid abdominal mesenteric lymph nodes with karena me sentery. 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 Follow-up in 6 months to ensure stability /resolution. 4. 5.8 cm cystic lesion of the right ovary increased in size from 2.2 cm on 02/21/2020. Recommend pel yumiko ultrasound for further characterization and to determine subsequent follow-up.
== END | disposition home or self-care (01) ==
LOC: RADCTMAIN 15:59
PROVIDERS: ATTEND Internal Medicine
DX: K43.9 Ventral hernia without obstruction or gangrene (principal); K65.4 Sclerosing mesenteritis; N83.201 Unspecified ovarian cyst, right side
CPT/HCPCS: 74176

== ENCOUNTER 2020-08-07 10:16 | Day surgery (SDC) | payer BC ==
[2020-08-01 10:59] VITALS: BMI 24.6
[~2020-08-07 10:16] MED LIST: LACTATED RINGERS 1,000 ML IV SCH
[2020-08-07 10:45] VITALS: TEMP 97.8
[2020-08-07] MEDS ORDERED: LACTATED RINGERS 1,000 ML IV ONE (10:45)
[2020-08-07] MEDS ORDERED: LIDOCAINE 1% (10MG/ML) FOR IV START INTRADERMA ONE (10:55)
[2020-08-07] MEDS ORDERED: PROPOFOL 10 MG/ML 20 ML VIAL IV ONE (11:26)
--- NOTE | 2020-08-07 11:48 | P.PCN ---
Date of Procedure: 08/07/20 Procedure(s) Performed: BRIEF HISTORY: Patient is a 44-year-old pleasant white female scheduled for an elective colonoscopy as a part of evaluation of lower abdominal pain and change in bowel habits for the last several months duration. PROCEDURE PERFORMED: Colonoscopy with snare polypectomy. PREOPERATIVE DIAGNOSIS: Change in bowel habits and lower abdominal. IV sedation per Anesthesia. PROCEDURE: After informed consent was obtained, the patient, was brought into the endoscopy unit. IV sedation was administered by Anesthesia under continuous monitoring. Digital rectal examination was normal. Initially the Olympus CF-160 flexible video colonoscope was then inserted in the rectum, gradually advanced into the cecum without any difficulty. Careful examination was performed as the scope was gradually being withdrawn. Ileocecal valve and the appendiceal orifice were visualized and appeared normal. Prep was excellent. Mucosa of the cecum, ascending colon, appeared normal. In the proximal transverse colon there was a 2 cm broad-based polyp removed by snare polypectomy. transverse colon, d escending colon, sigmoid colon, and rectum appeared normal. Retroflexion was performed in the rectum and no lesions were seen. The patient tolerated the procedure well. IMPRESSION: 2 cm broad-based proximal transverse colon polyp status post polypectomy Rest of the colon appeared normal RECOMMENDATIONS: Findings of this examination were discussed with the patient as well as her family. She was advised to follow with the biopsy results. If the biopsy results and have a repeat colonoscopy in 3-5 years. She will continue with osmotic laxatives for the chronic constipation..
[2020-08-07 11:53] VITALS: RESP 16
[2020-08-07 12:03] VITALS: BP 139/82; PULSE 65
== END 2020-08-07 12:20 ==
LOC: ORWHC2ENDO 10:16
PROVIDERS: ATTEND Internal Medicine Gastroenterology
DX: D12.3 Benign neoplasm of transverse colon (principal); Z88.2 Allergy status to sulfonamides; Z88.5 Allergy status to narcotic agent; Z79.899 Other long term (current) drug therapy
CPT/HCPCS: 81025; 88305; 45385; J2704

== ENCOUNTER → 2020-08-14 | Outpatient (CLI) | payer BC ==
--- NOTE | 2020-08-15 11:12 | US ---
EXAMINATION TYPE: US pelvis complete transvag DATE OF EXAM: 08/14/2020 COMPARISON: CT abdomen pelvis 07/31/2020 CLINICAL HISTORY: N83.201 RT OVARIAN CYST. Follow up ovarian cyst. TECHNIQUE: Transvaginal (TV) and Transabdominal (TA) . Transabdominal sonographic images of the pel vis were acquired. Transvaginal sonographic images were medically necessary to better assess the fol lowing anatomy: Endometrium and ovaries Date of LMP: 08/05/2002, EXAM MEASUREMENTS: Uterus: 9.9 x 6.3 x 3.7 cm Endometrial Stripe: 1.0 cm Right Ovary: 4.0 x 2.7 x 2.9 cm Left Ovary: 2.7 x 1.9 x 2.0 cm 1. Uterus: Anteverted Heterogenous. Right focal hypoechoic lesion = 1.1 x 1.2 x 1.0 cm. Left foc al hyperechoic lesion = 1.2 x 1.2 x 1.1 cm 2. Endometrium: wnl 3. Right Ovary: Complex cyst= 2.1 x 2.3 x 1.9 cm . This is diminished in size from the CT examinatio n. 4. Left Ovary: complex lesion = 1.2 x 1.4 x 1.2 cm 5. Bilateral Adnexa: wnl 6. Posterior cul-de-sac: free fluid Cervix- nabothian cysts IMPRESSION: 1. Uterine lesions discussed above. Fibroids are favored within the differential. 2. Complex bilateral ovarian cysts. These should be followed in 6 weeks or following the next normal menstrual period. 3. The right ovarian cyst has diminished in size over the interval from comparison CT July 2020.
== END | disposition home or self-care (01) ==
LOC: RADUSWWP 16:17
PROVIDERS: ATTEND Internal Medicine
DX: N83.201 Unspecified ovarian cyst, right side (principal); N83.202 Unspecified ovarian cyst, left side; D25.9 Leiomyoma of uterus, unspecified; N85.9 Noninflammatory disorder of uterus, unspecified
CPT/HCPCS: 76830; 76856

== ENCOUNTER → 2020-09-22 | Outpatient (CLI) | payer BC ==
--- NOTE | 2020-09-26 11:58 | MM ---
Reason for exam: screening (asymptomatic). Last mammogram was performed 2 years and 3 months ago. History: Retro-pectoral saline implants, September 2011. Took hormonal contraceptives for 10 years. Physical Findings: A clinical breast exam by your physician is recommended on an annual basis and results should be correlated with mammographic findings. MG Screening Mammo Implant/CAD Bilateral CC, MLO, and ID view(s) were taken. Prior study comparison: June 19, 2018, bilateral MG screening mammo implant/CAD. February 13, 2017, bilateral MG 3d screen mammo imp/cad. Finding: There is a typically benign 5 mm equal density (isodense), circumscribed round mass located 3 cm from the nipple in the upper outer quadrant, middle position of the right breast. Bilateral breast prothesis. New finding since June 19, 2018 and February 13, 2017. ASSESSMENT: Incomplete: need additional imaging evaluation, BI-RAD 0 RECOMMENDATION: Ultrasound of the right breast. [facility] will attempt to contact patient to return for ultrasound.
== END | disposition home or self-care (01) ==
LOC: RADMAMWWP 10:52
PROVIDERS: ATTEND Obstetrics & Gynecology
DX: Z12.31 Encounter for screening mammogram for malignant neoplasm of breast (principal)
CPT/HCPCS: 77067

== ENCOUNTER → 2020-09-25 | Outpatient (CLI) | payer BC ==
--- NOTE | 2020-09-25 08:40 | US ---
EXAMINATION TYPE: US pelvic complete DATE OF EXAM: 09/25/2020 COMPARISON: NONE CLINICAL HISTORY: 44-year-old female N83.0 Left ovarian cyst. TECHNIQUE: Transabdominal (TA FINDINGS: EXAM MEASUREMENTS: Uterus: 9.4 x 5.2 x 7.4 cm Endometrial Stripe: .6 cm Right Ovary: 3.9 x 3.7 x 3.8 cm Left Ovary: 4.8 x 4.0 x 3.9 cm 1. Uterus: Anteverted otherwise wnl 2. Endometrium: Trace fluid seen in the uterine cavity. 3. Right Ovary: Cystic area seen measuring 3.2 x 2.7 x 2.5 cm. This had a more complex appearance bu t measured smaller at 2.3 cm, previously. 4. Left Ovary: Cystic area seen 4.2 x 3.4 x 3.9 cm . Larger now but no longer demonstrating the inte rnal complexity seen on 08/14/2020 where it measured 1.4 cm. 5. Bilateral Adnexa: wnl 6. Posterior cul-de-sac: wnl IMPRESSION: 1. While a cyst within each ovary is larger now measuring 3.2 and 4.2 cm on the right and left sides, respectively (versus 2.3 and 1.4 cm, previously), they show less complexity. Ongoing physiologic narendra nge is favored but additional follow-up is recommended. 2. Trace fluid within the uterine cavity also likely physiologic change.
== END | disposition home or self-care (01) ==
LOC: RADUSWWP 07:01
PROVIDERS: ATTEND Obstetrics & Gynecology
DX: N83.202 Unspecified ovarian cyst, left side (principal); N83.201 Unspecified ovarian cyst, right side; N83.209 Unspecified ovarian cyst, unspecified side
CPT/HCPCS: 76856; 86304

== ENCOUNTER → 2020-10-05 | Outpatient (CLI) | payer BC ==
--- NOTE | 2020-10-05 10:27 | USB ---
Reason for exam: additional evaluation requested from abnormal screening. History: Retro-pectoral saline implants, September 2011. Took hormonal contraceptives for 10 years. Physical Findings: Nurse did not find any significant physical abnormalities on exam. US Breast Workup Limited RT Right limited breast ultrasound including focal area of concern, retroareolar and axilla demonstrates a 0.3 x 0.3 x 0.2cm cystic lesion at 10 o'clock. These results were verbally communicated with the patient and result sheet given to the patient on 10/05/20. ASSESSMENT: Benign, BI-RAD 2 RECOMMENDATION: Return to routine screening mammogram schedule for both breasts.
== END | disposition home or self-care (01) ==
LOC: RADUSWWP 08:58
PROVIDERS: ATTEND Obstetrics & Gynecology
DX: R92.8 Other abnormal and inconclusive findings on diagnostic imaging of breast (principal)

== ENCOUNTER → 2020-11-28 | Outpatient (CLI) | payer BC ==
[2020-11-28 12:27] LABS: Appearance,Urine Cloudy (Clear); Bilirubin,Urine Negative (Negative); Blood,Urine Negative (Negative); Color,Urine Light Yellow; Glucose,Urine (UA) Negative (Negative); Ketones,Urine Negative (Negative); Leukocyte Esterase,Urine Large (Negative); Mucus,Urine Rare /hpf; Nitrite,Urine Negative (Negative); Protein,Urine Negative (Negative); RBC,Urine 5 /hpf (0-5); Specific Gravity,Urine 1.011 (1.001-1.035); Squamous Epithelial Cell,Urine 10 /hpf (0-4); Urobilinogen,Urine <2.0 mg/dL (<2.0); WBC,Urine 8 /hpf (0-5)
[2020-11-28 13:27] LABS: INR 0.9 (<1.2); Partial Thromboplastin Time 22.2 sec (22.0-30.0); Prothrombin Time 10.2 sec (9.0-12.0)
[2020-11-28 21:02] LABS: Basophils # (A) 0.06 X 10*3/uL (0.00-0.10); Basophils % (A) 0.9 %; Eosinophils # (A) 0.13 X 10*3/uL (0.04-0.35); Eosinophils % (A) 2.1 %; HCT 41.1 % (37.2-46.3); HGB 12.7 g/dL (12.0-15.0); Lymphocytes # (A) 2.09 X 10*3/uL (0.90-5.00); MCH 30.1 pg (27.0-32.0); MCHC 30.9 g/dL (32.0-37.0); MCV 97.4 fL (80.0-97.0); Mean Platelet Volume 11.9 fL (9.5-12.2); Monocytes % (A) 7.9 %; Neutrophils # (A) 3.55 X 10*3/uL (1.80-7.70); Neutrophils % (A) 55.9 %; Platelet Count 366 X 10*3/uL (140-440); RBC 4.22 X 10*6/uL (4.10-5.20); RDW 12.9 % (11.5-14.5); WBC 6.34 X 10*3/uL (4.50-10.00)
[2020-11-29 19:19] LABS: T4, Free (Free Thyroxine) 1.2 ng/dL (0.80-1.80)
[2020-11-29 19:21] LABS: African American GFR (CKD) 90.8 (60.0-200.0); Albumin 4.7 g/dL (3.80-4.90); Albumin/Globulin Ratio 2.14 (1.60-3.17); Anion Gap 13.9 mmol/L (4.00-12.00); BUN/Creat Ratio 13.33 Ratio (12.00-20.00); Calcium 10.4 mg/dL (8.7-10.3); Carbon Dioxide 20.1 mmol/L (21.6-31.8); Chol/HDL Ratio 3.71; Globulin 2.2 g/dL (1.6-3.3); LDL Cholesterol,Calculated 128.8 mg/dL (0.0-131.0); Non-African American GFR(CKD) 78.3 (60.0-200.0); Potassium 5.2 mmol/L (3.5-5.5); Total Bilirubin 0.5 mg/dL (0.3-1.2); Total Protein 6.9 g/dL (6.2-8.2); VLDL Calculation 23.2 mg/dL (5.00-40.00)
== END | disposition home or self-care (01) ==
LOC: LABWHC1 09:38
PROVIDERS: ATTEND Internal Medicine
DX: Z01.810 Encounter for preprocedural cardiovascular examination (principal); E03.9 Hypothyroidism, unspecified; N20.0 Calculus of kidney
CPT/HCPCS: 36415; 80053; 80061; 81001; 84439; 84443; 85025; 85610; 85730

== ENCOUNTER → 2021-01-03 | Outpatient (CLI) | payer BC ==
[2021-01-03 16:08] LABS: Basophils # (A) 0.07 X 10*3/uL (0.00-0.10); Basophils % (A) 1.3 %; Eosinophils # (A) 0.32 X 10*3/uL (0.04-0.35); Eosinophils % (A) 6.1 %; HCT 37.3 % (37.2-46.3); HGB 11.7 g/dL (12.0-15.0); Lymphocytes # (A) 2.56 X 10*3/uL (0.90-5.00); Lymphocytes % (A) 48.5 %; MCH 29.8 pg (27.0-32.0); MCHC 31.4 g/dL (32.0-37.0); MCV 95.2 fL (80.0-97.0); Mean Platelet Volume 11.9 fL (9.5-12.2); Monocytes # (A) 0.55 X 10*3/uL (0.20-1.00); Monocytes % (A) 10.4 %; Neutrophils # (A) 1.77 X 10*3/uL (1.80-7.70); Neutrophils % (A) 33.5 %; Platelet Count 341 X 10*3/uL (140-440); RBC 3.92 X 10*6/uL (4.10-5.20); RDW 12.8 % (11.5-14.5); WBC 5.28 X 10*3/uL (4.50-10.00)
== END | disposition home or self-care (01) ==
LOC: LABWHC1 09:57
PROVIDERS: ATTEND Obstetrics & Gynecology
DX: N83.201 Unspecified ovarian cyst, right side (principal)
CPT/HCPCS: 36415; 85025

== ENCOUNTER → 2021-05-10 | Outpatient (CLI) | payer BC ==
[2021-05-10 15:34] LABS: Partial Thromboplastin Time 21.4 sec (22.0-30.0); Prothrombin Time 10.9 sec (9.0-12.0)
[2021-05-10 18:16] LABS: Basophils # (A) 0.06 X 10*3/uL (0.00-0.10); Eosinophils # (A) 0.12 X 10*3/uL (0.04-0.35); Eosinophils % (A) 1.9 %; HCT 37.2 % (37.2-46.3); HGB 12.1 g/dL (12.0-15.0); Lymphocytes # (A) 2.33 X 10*3/uL (0.90-5.00); Lymphocytes % (A) 37.5 %; MCH 30.6 pg (27.0-32.0); MCHC 32.5 g/dL (32.0-37.0); MCV 93.9 fL (80.0-97.0); Mean Platelet Volume 11.8 fL (9.5-12.2); Monocytes # (A) 0.51 X 10*3/uL (0.20-1.00); Monocytes % (A) 8.2 %; Neutrophils # (A) 3.19 X 10*3/uL (1.80-7.70); Neutrophils % (A) 51.2 %; Platelet Count 387 X 10*3/uL (140-440); RBC 3.96 X 10*6/uL (4.10-5.20); RDW 12.8 % (11.5-14.5); WBC 6.22 X 10*3/uL (4.50-10.00)
[2021-05-11 01:21] LABS: ALT 9 U/L (8-44); AST 13 U/L (13-35); Albumin 4.3 g/dL (3.8-4.9); Albumin/Globulin Ratio 1.85 (1.60-3.17); Alkaline Phosphatase 52 U/L (41-126); BUN/Creat Ratio 27.92 Ratio (12.00-20.00); Blood Urea Nitrogen 12.9 mg/dL (9.0-27.0); Calcium 9.8 mg/dL (8.7-10.3); Carbon Dioxide 23.2 mmol/L (21.6-31.8); Chloride 103 mmol/L (96-109); Globulin 2.3 g/dL (1.6-3.3); Glucose 87 mg/dL (70-110); Non-African American GFR(CKD) 120.8 (60.0-200.0); Potassium 4.8 mmol/L (3.5-5.5); Sodium 137 mmol/L (135-145); Total Bilirubin <0.20 mg/dL (0.30-1.20); Total Protein 6.6 g/dL (6.2-8.2)
== END | disposition home or self-care (01) ==
LOC: LABWHC1 14:01
PROVIDERS: ATTEND Internal Medicine
DX: K62.5 Hemorrhage of anus and rectum (principal)
CPT/HCPCS: 36415; 80053; 85025; 85610; 85730

== ENCOUNTER → 2021-07-17 | Outpatient (CLI) | payer BC ==
--- NOTE | 2021-07-17 10:27 | XR ---
EXAMINATION TYPE: XR chest 2V DATE OF EXAM: 07/17/2021 COMPARISON: Chest x-ray April 20, 2014 HISTORY: Chest pressure. TECHNIQUE: Frontal and lateral views of the chest are obtained. FINDINGS: There is no suspicious new focal air space opacity, pleural effusion, or pneumothorax seen . The cardiac silhouette size is stable and within normal limits. Slight underlying scoliotic curvat ure is present. IMPRESSION: No acute process. No significant change from prior.
== END | disposition home or self-care (01) ==
LOC: RADXRMAIN 09:32
PROVIDERS: ATTEND Internal Medicine
DX: R07.89 Other chest pain (principal)
CPT/HCPCS: 71046

== ENCOUNTER → 2021-09-19 | Outpatient (CLI) | payer BC ==
[2021-09-19 17:35] LABS: HDL Cholesterol 48.7 mg/dL (40.00-60.00); Triglycerides 47.9 mg/dL (0.00-149.00)
[2021-09-19 17:48] LABS: Chol/HDL Ratio 4.13 Ratio
== END | disposition home or self-care (01) ==
LOC: LABWHC1 08:35
PROVIDERS: ATTEND Internal Medicine
DX: Z13.220 Encounter for screening for lipoid disorders (principal); R06.02 Shortness of breath
CPT/HCPCS: 36415; 80061; 83721; 85379

== ENCOUNTER → 2023-05-19 | Outpatient (CLI) | payer BC ==
--- NOTE | 2023-05-19 16:01 | US ---
EXAMINATION TYPE: US pelvis complete transvag DATE OF EXAM: 05/19/2023 COMPARISON: Pelvic ultrasound 09/25/2020 CLINICAL INDICATION: Female, 47 years old with history of N83.0 FOLLICULAR CYST OF OVAR D25.9 LEIOMYO MA OF U; Right oophorectomy and fibroids TECHNIQUE: Transvaginal (TV) and Transabdominal (TA) . Transabdominal sonographic images of the pel vis were acquired. Transvaginal sonographic images were medically necessary to better assess the fol lowing anatomy: Uterus Date of LMP: 04/27/23, period has not stopped as of today EXAM MEASUREMENTS: Uterus: 10.3x5.7x8.1 cm Endometrial Stripe: 1.7 cm Right Ovary: Surgically absent Left Ovary: 2.3x1.7x1.5 cm 1. Uterus: Anteverted several large fibroids, largest 3 measured Sup/Left: 2.7x2.7x2.7cm Sup/ Right: 2.0x1.7x2.5cm Posterior/Mid: 2.1x1.8x2.5cm 2. Endometrium: enlarged 3. Right Ovary: Surgically absent 4. Left Ovary: wnl 5. Bilateral Adnexa: Obscured by overlying bowel gas 6. Posterior cul-de-sac: wnl Fibroid changes of the uterus redemonstrated. Endometrium is at the top end of normal for thickness. Right ovary surgically absent. Unremarkable left ovary. No free fluid. IMPRESSION: 1. Fibroid changes of the uterus. 2. Endometrium is at the top end of normal for thickness. 3. Previously seen left ovarian cyst has resolved.
== END | disposition home or self-care (01) ==
LOC: RADUSWWP 14:51
PROVIDERS: ATTEND Obstetrics & Gynecology Obstetrics
DX: D25.9 Leiomyoma of uterus, unspecified (principal); N83.02 Follicular cyst of left ovary
CPT/HCPCS: 76830; 76856

== ENCOUNTER → 2024-03-22 | Outpatient (CLI) | payer BC ==
--- NOTE | 2024-05-11 14:39 | CT ---
EXAMINATION TYPE: CT abdomen pelvis wo con CT DLP: 861 mGycm, Automated exposure control for dose reduction was used. DATE OF EXAM: 03/30/2024 6:59 PM COMPARISON: CT abdomen pelvis 07/31/2020, pelvic ultrasound 05/19/2023 CLINICAL INDICATION: Female, 48 year old with history of lower abdominal pain. TECHNIQUE: Standard CT of the abdomen and pelvis following the administration of oral contrast. Cor onal and sagittal reformats were performed. Evaluation is limited due to lack of intravenous contrast . FINDINGS: LOWER CHEST: Visualized lung bases are clear. Bilateral breast prosthesis partially visualized. ABDOMEN LIVER: Unremarkable noncontrast appearance GALLBLADDER AND BILE DUCTS: Unremarkable noncontrast appearance PANCREAS: Unremarkable noncontrast appearance SPLEEN: Unremarkable noncontrast appearance ADRENAL GLANDS: Unremarkable noncontrast appearance. KIDNEYS AND URETERS: No evidence of hydronephrosis or renal calculus. . Right renal superior pole 1.4 cm cyst. PELVIS BLADDER: Unremarkable REPRODUCTIVE: The uterus is surgically absent. Similar size of left ovary from prior exam. Right ovar y isn't not definitively visualized. Right adnexal cystic lesion from prior examination is no longer visualized. ABDOMEN & PELVIS STOMACH AND BOWEL: Stomach and duodenum are unremarkable. The appendix is not definitively visualized . No inflammatory changes within the right lower quadrant. Enteric contrast reaches the mid small bow el. No focal bowel wall thickening. No evidence of bowel obstruction. PERITONEUM: No evidence of pneumoperitoneum. Trace amount of free fluid in the pelvis. VASCULATURE: No evidence of aortic aneurysm. MUSCULOSKELETAL: No acute osseous abnormalities. Postsurgical changes of the left proximal femur with 3 metallic screws identified. LYMPH NODES: No gross evidence for lymphadenopathy. SOFT TISSUE/ABDOMINAL WALL: Unremarkable IMPRESSION: Postsurgical changes from hysterectomy. Nonspecific trace free fluid in the pelvis. Otherwise no CT e vidence for acute process within limitations of a noncontrast exam.
== END | disposition home or self-care (01) ==
LOC: RADCTMAIN 11:45
PROVIDERS: ATTEND Internal Medicine
DX: R10.30 Lower abdominal pain, unspecified (principal); Z90.710 Acquired absence of both cervix and uterus
CPT/HCPCS: 74176; Q9967